=== PATIENT | male | born 1935 | race Caucasian/White ===

== ENCOUNTER → 2016-10-11 | Outpatient (CLI) | payer OTHER ==
[~2016-10-11] MED LIST: CALCCHW57 PO; CHOL1000 PO; CIPR-255 PO; DOCU-94 PO; LISI-461 PO; LISI-787 PO; OXYC7.5T65 PO; PHEN-775 PO; TAMS0.4C38 PO
== END | disposition home or self-care (01) ==
LOC: C.PATHSPEC 17:16
PROVIDERS: ATTEND Urology
DX: R97.20 Elevated prostate specific antigen [PSA] (principal); C61 Malignant neoplasm of prostate

== ENCOUNTER → 2016-11-03 | Outpatient (CLI) | payer OTHER ==
[~2016-11-03] MED LIST changes: +OPTIRAY 320 IV PRN
--- NOTE | 2016-11-03 12:23 | DIAGNOSTIC IMAGING REPORT ---
WHOLE BODY BONE SCAN HISTORY: Prostate carcinoma PROSTATE CA RADIOTRACER: 26.9 mCi Tc-99m MDP STUDY/IMAGES: Planar anterior and posterior whole body imaging was performed 3 hours following the intravenous administration of radiotracer. COMPARISON: None. FINDINGS: Bilateral renal activity is present. There is some prominence of the left renal pelvis. Subtle increase in activity in the T12 vertebral body felt to be secondary to an old compression deformity base of the CT exam the same date. Low-level increase in activity of the left eighth rib seen posteriorly as well as anteriorly felt to represent posttraumatic change as well. The axial and appendicular skeleton is otherwise unremarkable in terms of activity characteristics. There is no evidence for metastatic bone disease. IMPRESSION: Study is negative for metastatic bone disease. Electronically signed by: Remigio Harper M.D. 11/03/2016 12:21 PM Dictated Date/Time: 11/03/2016 12:16 PM
--- NOTE | 2016-11-03 12:41 | DIAGNOSTIC IMAGING REPORT ---
ABD/PELVIS IV CONTRAST ONLY CLINICAL HISTORY: 81 years-old Male presenting with PROSTATE CA. TECHNIQUE: Multidetector CT of the abdomen and pelvis was performed after the administration of intravenous contrast. IV contrast: 117 mL of Optiray 320. COMPARISON: None. CT DOSE: The estimated cumulative dose is 832.78 mGycm. FINDINGS: Animal Cruelty Investigator topogram: Unremarkable. Lung bases: Minimal dependent changes in the lungs likely atelectasis. Normal heart size. No pericardial or pleural effusion. Liver: Normal morphology. No liver lesion. Patent hepatic vasculature. Biliary: No intrahepatic or extrahepatic biliary ductal dilatation. Normal gallbladder. Pancreas: 4 mm hypodense focus in the uncinate process (series 2 image 33), too small to characterize but possibly tiny cystic lesion. No pancreatic ductal dilatation. Spleen: Normal. Adrenal glands: Normal. Kidneys and ureters: Scattered well-defined hypodense lesions in the kidneys bilaterally, greater on the right, likely cysts. Mild to moderate left pelvocaliectasis with apparent mild urothelial enhancement and thickening. The left ureter also demonstrates mild enhancement and thickening. The left ureter is mildly dilated. Incidental note made of circumaortic left renal vein. Gastrointestinal tract: Sigmoid diverticulosis. No bowel obstruction. Peritoneal cavity: No free fluid or intraperitoneal gas. Bladder: Diffuse mild bladder wall thickening. Pelvic organs: Prostate enlargement. The prostate measures 4.7 cm in transverse dimension. Vasculature: Atherosclerosis of the abdominal aorta, which demonstrates mild ectasia in the infrarenal segment measuring up to 2.6 cm in maximal diameter. Atherosclerosis of the common iliac arteries. IVC patent. Lymph nodes: No enlarged lymph nodes in the abdomen or pelvis. Abdominal wall: Normal. Musculoskeletal: Anterior vertebral body height loss of T12 consistent with a compression deformity. Mild degenerative changes in the lumbar spine primarily at L4-5 and L5-S1. Prominent Schmorl's node noted at the inferior endplate of L1. Sclerotic bone lesion in the left ischium (series 2 image 79). Chronic deformity of the right transverse process of L1, possibly congenital. IMPRESSION: 1. Enlarged prostate. No lymphadenopathy. Sclerotic lesion in the left ischium, which is suspicious in the clinical setting of prostate cancer. Further evaluation with nuclear medicine bone scan to be considered. 2. Circumferential bladder wall thickening could be seen in the setting of chronic outlet obstruction or cystitis. 3. Urothelial thickening and enhancement in the left collecting system raises concern for infectious cystitis with upper tract involvement. Correlate with urinalysis. No evidence of pyelonephritis. Dilatation of the left renal collecting system. Evaluation for hydronephrosis limited by the single phase examination and obstruction cannot be excluded. 4. Intervertebral body height loss of T12 consistent with an age-indeterminate compression deformity. Electronically signed by: Peter Wiley 11/03/2016 12:40 PM Dictated Date/Time: 11/03/2016 12:27 PM
== END | disposition home or self-care (01) ==
LOC: C.NUCL 07:33
PROVIDERS: ATTEND Urology
DX: C61 Malignant neoplasm of prostate (principal)

== ENCOUNTER 2016-12-28 07:09 | Day surgery (SDC) | payer OTHER ==
[2016-12-13 09:13] VITALS: BMI 28.0
--- NOTE | 2016-12-13 09:48 | PAT Medication Instructions ---
Service Date Dec 13, 2016. Current Home Medication List Calcium Carbonate-Vitamin D W/ (Calcium 1200), 1 TAB PO QAM Cholecalciferol (Vitamin D3), 1 TAB PO QAM Lisinopril/Hctz (Zestoretic 20MG/12.5MG), 0.5 TAB PO QD@16 Tamsulosin Hcl (Flomax), 1 CAP PO QAM Medication Instructions For Your Scheduled Surgery - Hold the following medications the morning of surgery: Calcium Carbonate-Vitamin D W/ (Calcium 1200), 1 TAB PO QAM Cholecalciferol (Vitamin D3), 1 TAB PO QAM Tamsulosin Hcl (Flomax), 1 CAP PO QAM - Hold the following medications as scheduled the night before surgery: Lisinopril/Hctz (Zestoretic 20MG/12.5MG), 0.5 TAB PO QD@16 If you have any questions please call us at [phone] or [phone] or [phone]
[2016-12-13 10:41] LABS: URINE APPEARANCE CLEAR (CLEAR); URINE BILIRUBIN NEG (NEG); URINE COLOR YELLOW; URINE NITRITE NEG (NEG); URINE PH 6.5 (4.5-7.5); URINE SPECIFIC GRAVITY 1.011 (1.000-1.030); UROBILINOGEN NEG (NEG)
[2016-12-13 10:41] LABS: BASO % 0.3 %; BASO ABS # 0.02 K/uL (0-0.2); COMPLETE YES; EOS % 2.5 %; HEMATOCRIT 44.7 % (42-52); IG% 0.1 %; LYMPH % 27.1 %; LYMPH ABS # 1.83 K/uL (1.2-3.4); MEAN CELL VOLUME 93.3 fL (80-100); MEAN CORPUSCULAR HEMOGLOBIN 32.2 pg (25-34); MEAN CORPUSCULAR HGB CONC 34.5 g/dl (32-36); MEAN PLATELET VOLUME 9.7 fL (7.4-10.4); MONO % 6.5 %; NEUT % 63.5 %; PLATELET COUNT 223 K/uL (130-400); RED BLOOD COUNT 4.79 M/uL (4.7-6.1); WHITE BLOOD COUNT 6.75 K/uL (4.8-10.8)
[2016-12-13 10:44] LABS: MANUAL MICROSCOPIC REQUIRED? NO; REVIEW REQ? NO
--- NOTE | 2016-12-13 10:48 | DIAGNOSTIC IMAGING REPORT ---
CHEST PREADMISSION(PA/LAT) CLINICAL HISTORY: 81 years-old Male presenting with preoperative assessment. TECHNIQUE: PA and lateral views of the chest were obtained. COMPARISON: Correlation made to CT of the abdomen and pelvis from 11/03/2016. FINDINGS: Cardiomediastinal silhouette normal. Minimal vague right basilar opacity may be present. No other focal infiltrate. No pleural effusion or pneumothorax. Degenerative changes of the spine. Upper abdomen normal. IMPRESSION: 1. Possible minimal right basilar atelectasis. Otherwise no evidence of acute cardiopulmonary disease. Electronically signed by: Peter Wiley M.D. 12/13/2016 10:46 AM Dictated Date/Time: 12/13/2016 10:45 AM
[2016-12-13 11:16] LABS: BUN/CREATININE RATIO 21.2 (10-20); CALCIUM 8.9 mg/dl (8.5-10.1); POTASSIUM 4.3 mmol/L (3.5-5.1)
[~2016-12-28] VITALS: Ht 172.7 cm; Wt 83.1 kg
[~2016-12-28 07:09] MED LIST changes: -CIPR-255 PO; +CIPROFLOXACIN / D5W 400 MG IV SCH; -DOCU-94 PO; +LACTATED RINGER'S 1000ML 1,000 ML IV SCH; -LISI-461 PO; -OPTIRAY 320 IV PRN; -OXYC7.5T65 PO; -PHEN-775 PO
[2016-12-28 07:48] VITALS: BP 166/86; PULSE 67; TEMP 36.4; O2SAT 94; Ht 172.7 cm; Wt 83.1 kg
[2016-12-28] MEDS ORDERED: FENTANYL CITRATE INJ 50 MCG/1 ML 2 ML VIAL ONE (08:01)
[2016-12-28] MEDS ORDERED: EpHEDrine SULFATE INJ 50 MG/ML AMP IV PRN (08:30)
[2016-12-28] MEDS ORDERED: ATROPINE SULFATE 0.1 MG/ML 5ML SYR IV PRN (08:30)
[2016-12-28] MEDS ORDERED: HYDROmorphone INJ 2 MG/ML SYR/VIAL IV PRN (08:30)
[2016-12-28] MEDS ORDERED: ONDANSETRON INJ 2 MG/ML 2 ML VIAL IV PRN (08:30)
[2016-12-28] MEDS ORDERED: PHENYLEPHRINE 100MCG/ML 5ML SYR IV PRN (08:30)
--- NOTE | 2016-12-28 09:14 | History & Physical Bridge Note ---
H&P Re-Evaluation Bridge Note: I have examined the patient, reviewed the History & Physical and in the interval since the performance of the History & Physical I have noted the following changes of clinical significance: No changes noted
[2016-12-28] MEDS ORDERED: PROPOFOL IV EMULSION 10 MG/ML 20 ML VIAL IV ONE (10:23)
[2016-12-28] MEDS ORDERED: DEXAMETHASONE SOD INJ 4 MG/ML VIAL ONE (10:23)
[2016-12-28] MEDS ORDERED: ONDANSETRON INJ 2 MG/ML 2 ML VIAL ONE (10:23)
[2016-12-28] MEDS ORDERED: LIDOCAINE HCL 2% 2 ML VIAL (20MG/ML) ONE (10:23)
[2016-12-28] MEDS ORDERED: BUPIVACAINE 0.5 % 5 MG/1 ML MPF 30ML VIAL ONE (10:32)
[2016-12-28] MEDS ORDERED: BELLADONNA/OPIUM SUPP 60 MG SUPP PR ONE (10:42)
[2016-12-28] MEDS ORDERED: BACITRACIN OINT 15 GM TUBE ONE (11:03)
[2016-12-28] MEDS ORDERED: CIPR-255 PO (11:16)
[2016-12-28] MEDS ORDERED: PHEN-775 PO (11:16)
[2016-12-28] MEDS ORDERED: OXYC7.5T65 PO (11:16)
[2016-12-28] MEDS ORDERED: DOCU-94 PO (11:16)
--- NOTE | 2016-12-28 11:19 | Discharge Instructions ---
Discharge Instructions Date of Service Dec 28, 2016. Admission Reason for Admission: Benign Prostatic Hyperplasia, Prostate Cancer for XRT Discharge Discharge Diagnosis / Problem: BPH / CAP, LUTS s/p GLTURP and fiducial marker placement Discharge Goals Goal(s): Decrease discomfort, Improve function, Improve disease control, Therapeutic intervention Activity Recommendations Activity Limitations: as noted below Lifting Limitations: no more than 25 pounds, gradually increase as tolerated ( x 5 days) Exercise/Sports Limitations: rest today, gradually increase as tolerated (x 5 days) May Resume Sexual Activity: after follow-up appointment Shower/Bathe: no limitations (no tub bath until catheter removed) . Discharge Diet Recommended Diet: Regular Diet (good fluid intake) Procedures Procedures Performed: Greenlight Photo vaporization Laser of Prostate gland, Implantation of Fudicial Markers Pending Studies Studies pending at discharge: no Medical Emergencies . Who to Call and When: Medical Emergencies: If at any time you feel your situation is an emergency, please call 911 immediately. . Non-Emergent Contact Non-Emergency issues call your: Urologist Call Non-Emergent contact if: you have a fever, temperature is above 101, your pain is not controlled, your pain is worsening, your pain is unusual for you, your pain is concerning you, wound has increased drainage, wound has increased redness, you have any medication questions . . "Provider Documentation" section prepared by Stephen Brock. . VTE Core Measure Inpt VTE Proph given/why not?: SCD's [place] Drug Monitoring Program Search Results: patient reviewed within database, no issues identified
--- NOTE | 2016-12-28 11:21 | [facility] Post Operative Brief Note ---
Immediate Operative Summary Operative Date Dec 28, 2016. Pre-Operative Diagnosis Prostate Cancer, voiding symptoms, pending external beam radiation therapy Post-Operative Diagnosis Same Procedure(s) Performed Greenlight Laser Photo vaporization of Prostate gland, Implantation of Fudicial Markers Surgeon Dr. Stephen Brock Business Continuity Planner Surgeon(s) NA Estimated Blood Loss 10 mL Findings 121K J used, open fossa, 3 fiducial markers placed, two on left, one on right Specimens none Drains 20 fr 10 cc H2O Anesthesia GALMA Complication(s) None Disposition Recovery Room / PACU
--- NOTE | 2016-12-28 11:26 | [facility] Operative Report ---
Operative Report Operative Date Dec 28, 2016. Pre-Operative Diagnosis Prostate Cancer, voiding symptoms, pending external beam radiation therapy Post-Operative Diagnosis Same Procedure(s) Performed Greenlight Laser Photo vaporization of Prostate gland, Implantation of Fudicial Markers Surgeon Dr. Stephen Brock Teaching Pastor Surgeon(s) TONY Estimated Blood Loss 10 mL Findings 121K J used, open fossa with excellent hemostasis after completion, 3 fiducial markers placed, two on left, one on right Specimens none Drains 20 fr 10 cc H2O Anesthesia GALMA Complication(s) None Disposition Recovery Room / PACU Indications Patient is an 81-year-old male with [place] 4+4 prostate cancer, on prostate biopsy in relatively high volumes. He is pending external beam radiation therapy but continues to suffer from refractory voiding symptoms despite medical therapy. He is decided upon surgical management of his urinary symptoms prior to initiating his radiation therapy. He has been provided with Lupron approximately 1 month ago. Consent reviewed with the patient preoperatively and intravenous antibiotic was provided for coverage. SCDs used for DVT prophylaxis. Please see H&P for further details. Description of Procedure Patient was properly identified and brought to the operative suite after identification of appropriate consent of the chart. General anesthesia with laryngeal mask was initiated and the patient was prepped and draped in standard fashion for this procedure. Full timeout procedure was followed. Greenlight laser resectoscope was introduced into the bladder under direct visualization using a visual obturator. Bladder was surveyed in its entirety demonstrating grade 3 trabeculation with early cellules and small hutches diverticula on both sides. No intravesical papillary masses, tumors or calculi were appreciated. Ureteral orifices were noted and appreciated to be adequately removed from the bladder neck. Using a side fire greenlight laser fiber circumferential vaporization of the prostate was undertaken. This was performed between 80 and 120 W of energy. Relaxing incisions were made at the 5 and 7 o'clock position at the bladder neck to avoid future bladder neck contracture. Care was taken to avoid any dissection distal to the verumontanum. After approximately 121, 000 J of energy were used the prostate was noted to be well opened with excellent hemostasis and unobstructed fossa. No evidence of injury to the intravesical structures was appreciated. Bladder was partially distended and a 20 [place] Saldana catheter was placed over a catheter guide with return of clear irrigant. 10 mL of sterile water were placed within the balloon. Catheter was placed to gravity drainage. Transrectal ultrasound probe was then passed to allow for visualization of the prostate gland. A TUR defect was appreciated with a Saldana catheter in place. Copious central calcifications around the transition zone were noted. Using live ultrasound guidance fiducial markers were implanted within the prostate gland after creating a wheel of local anesthetic in the perineum. 2 gold markers were placed on the patient's left-hand side, 1 peripheral and one medial. One pocket marker was placed on the patient's right-hand side. These were visualized within the prostatic parenchyma on deployment. [place] were removed as was the transrectal ultrasound probe. Bacitracin ointment was placed on the perineum. Belladonna and opium suppository was provided for additional postoperative analgesia. Anesthesia was reversed patient's transient recovery room in stable condition. Follow-up care: Patient will be discharged home with a prescription for Pyridium , Percocet, ciprofloxacin and Colace. Outpatient trial void appointments in place. Follow-up in the office as planned. Patient instructed to contact our service should he note any fevers, chills, nausea, vomiting or other significant difficulties in the postoperative period I attest to the content of the Intraoperative Record and any orders documented therein. Any exceptions are noted below.
[2016-12-28] MEDS ORDERED: PHENAZOPYRIDINE HCL 200 MG TAB PO PRN (11:30)
[2016-12-28] MEDS ORDERED: OXYCODONE/ACETAMINOPHEN 5-325 TAB PO PRN (11:30)
--- NOTE | 2016-12-28 11:49 | Anesthesiology Progress Note ---
Anesthesia Post Op Note Date & Time Dec 28, 2016 at 11:49 Vital Signs Pain Intensity: 0 Vital Signs Past 12 Hours Date Time Temp Pulse Resp B/P (MAP) Pulse Ox O2 Delivery O2 Flow Rate FiO2 12/28/16 11:45 66 16 167/96 98 Room Air 12/28/16 11:35 67 16 156/94 100 Oxymask 10 12/28/16 11:25 62 16 162/95 100 Oxymask 12/28/16 11:15 36.9 64 16 168/97 100 Oxymask 10 12/28/16 07:48 36.4 67 20 166/86 (112) 94 Room Air Notes Mental Status: alert / awake / arousable, participated in evaluation Pt Amnestic to Procedure: Yes Nausea / Vomiting: adequately controlled Pain: adequately controlled Airway Patency, RR, SpO2: stable & adequate BP & HR: stable & adequate Hydration State: stable & adequate Anesthetic Complications: no major complications apparent
[2016-12-28 12:04] VITALS: BP_SYST 181; BP_SYST 192; BP_DIAS 102; BP_DIAS 98; PULSE 62; TEMP 36.9; O2SAT 97
[2016-12-28] MEDS ORDERED: HydrALAZINE HCL 20 MG/ML VIAL ONE (12:13)
[2016-12-28] MEDS ORDERED: NURSING VERBAL MED ORDER ONE (12:15)
[2016-12-28 12:35] VITALS: BP 157/77; PULSE 64; O2SAT 97
[2016-12-28 13:10] VITALS: BP 153/74; PULSE 74; TEMP 36.9; O2SAT 97
== END 2016-12-28 13:40 | disposition home or self-care (01) ==
LOC: C.ACU 07:09
PROVIDERS: ATTEND Urology
DX: C61 Malignant neoplasm of prostate (principal); N40.1 Benign prostatic hyperplasia with lower urinary tract symptoms; R39.12 Poor urinary stream; I10 Essential (primary) hypertension; Z79.899 Other long term (current) drug therapy

== ENCOUNTER 2018-09-05 09:00 | Observation (INO) ==
--- NOTE | 2018-08-26 14:23 | PAT Medication Instructions ---
Medication Instructions Date of Service August 26, 2018 Home Medications calcium carbonate-vitamin D3 1 tab PO QAM lisinopril-hydrochlorothiazide 0.5 tab PO QAM multivitamin 0.5 tab PO QAM DO NOT take the morning of surgery calcium carbonate-vitamin D3 1 tab PO QAM lisinopril-hydrochlorothiazide 0.5 tab PO QAM multivitamin 0.5 tab PO QAM Other Notes If you have any questions please call us at [phone] or [phone] or [phone] or [phone]
--- NOTE | 2018-08-27 09:08 | Anesthesiology Consultation ---
Date of Service August 27, 2018 Assessment & Plan (1) Encounter for pre-operative examination: Chart Review Chart Review: Acceptable Risk for Surgery and Patient seen in Pre Admission Testing Teaching & Discussion Pre-Anesthesia Teaching/Discussion Notes: Instructed NPO after midnight before surgery,except medications with 15 cc of water. Medication instructions provided according to the PAT guidelines. History Surgery Operation Date: 09/05/18 07:00 Proposed Procedures p Left Thyroid Lobectomy, Possible Subtotal Thyroidectomy - Anthony Hernandez MD Height/Weight Height: 5 ft 9 in Weight: 95.1 kg Allergies Allergy/AdvReac Type Severity Reaction Status Date / Time No Known Allergies Allergy Unverified 08/26/18 07:33 Medications Home Medications Medication Instructions Recorded Confirmed Last Taken calcium carbonate-vitamin D3 1 tab PO QAM 08/26/18 08/26/18 Unknown [Calcium 500 + D] lisinopril-hydrochlorothiazide 0.5 tab PO QAM 08/26/18 08/26/18 Unknown multivitamin 0.5 tab PO QAM 08/26/18 08/26/18 Unknown Past Medical History Medical History Cancer SCC AND MELANOMA H/O prostate cancer S/P RADIATION TREATMENT (~2016) Hearing deficit BILATERAL AIDS History of blood transfusion REMOTE 2/2 PUD/GIB Hypertension Osteoarthritis Thyroid goiter Exercise / Class Metabolic Activity III < 4 Walking/Shop/Light housework Past Surgical History Surgical History History of esophagogastroduodenoscopy (EGD) History of excision of lesion LEFT EAR (2/2 SCC) History of herniorrhaphy LEFT INGUINAL History of open reduction and internal fixation (ORIF) procedure LEFT CLAVICLE History of transurethral resection of prostate GREENLIGHT TURP: 07/08/16: LMA#5 AT [facility] S/P thyroid surgery RIGHT LOBECTOMY (HAS SINCE GROWN BACK) R/T GOITER Past Anesthesia History No Hx of Anesthesia Complications History of PONV No Hx of PONV and No Family Hx of PONV Social History Smoking Status: Never smoker Do You Dip or Chew Tobacco: No Hx Alcohol Use: Yes Alcohol type: wine alcohol intake frequency: a few times a week Hx Substance Use: No substance use type: does not use Review of Systems Patient denies chest pain, shortness of breath, cough, wheezing, palpitations. Physical Exam Vital Signs VITALS BP 163/82 P 69 TEMP 97.4 SP02 97%RA RESP 18 PHYSICAL Mildly decreased cervical extension. Full TMJ range of motion. TMD 3.5 finger breaths Mallampati Score 3 Dentition: several missing sides/molars Lungs: clear throughout to auscultation Cardiac: regular rate and rhythm, no murmurs noted Spine: normal Carotid arteries: negative bruit Extremities: no edema Testing Electrocardiogram Date: 08/27/18 Findings: + NSR @ (67) Chest X-Ray Date: 08/27/18 Findings: + NAD Calcification of the thoracic aortic arch. Mild interstitial coarsening of the lung bases unchanged suggestive of probable scarring intermixed with atelectasis. The lungs are mildly hyperinflated. Unchanged lower thoracic compression deformity. Laboratory Results 08/27/18 09:31 08/27/18 09:31
--- NOTE | 2018-08-27 10:08 | XRay Report ---
XR chest Pre-admission PA/Lat HISTORY: 82 years-old Male pat preoperative exam. No acute chest complaints COMPARISON: Chest radiographs 12/13/2016 TECHNIQUE: PA and lateral views of the chest FINDINGS: Cardiomediastinal and hilar silhouettes are within normal limits. Calcification of the thoracic aorti c arch. Mild interstitial coarsening of the lung bases unchanged suggestive of probable scarring inte rmixed with atelectasis. There is no pneumothorax, pleural effusion or overt pulmonary edema. The trisha gs are mildly hyperinflated. Degenerative changes are seen about the shoulders and spine. Unchanged l ower thoracic compression deformity. IMPRESSION: No acute process. The above report was generated using voice recognition software. It may contain grammatical, syntax o r spelling errors. Electronically signed by: Rizwan Hood M.D. 08/27/2018 10:06 AM
[2018-08-27 10:25] LABS: BUN Creatinine Ratio 17.5 (10-20); Calcium 9.1 mg/dl (8.5-10.1); Creatinine Clr Calc Pharmacy 61.4 ml/min; Est GFR (African American) 77.9; Est GFR (Non-African American) 67.2; Potassium 4.2 mmol/L (3.5-5.1)
[2018-08-27 10:28] LABS: Basophils # (auto) 0.02 K/uL (0-0.2); Basophils % (auto) 0.3 %; Eosinophils # (auto) 0.21 K/uL (0-0.5); Eosinophils % (auto) 3.3 %; Hematocrit (blood only) 41.8 % (42-52); Hemoglobin 14.5 g/dL (14.0-18.0); Immature Granulocytes # (auto) 0.02 K/uL (0.00-0.02); Immature Granulocytes % (auto) 0.3 %; Lymphocytes % (auto) 22.3 %; Mean Corpuscular Hgb Conc 34.7 g/dL (32-36); Mean Corpuscular Volume 90.5 fL (80-100); Mean Platelet Volume 9.7 fL (7.4-10.4); Monocytes # (auto) 0.49 K/uL (0.11-0.59); Monocytes % (auto) 7.8 %; Neutrophils # (auto) 4.15 K/uL (1.4-6.5); Platelet Count 242 K/uL (130-400); RDW Coefficient of Variation 13.4 % (11.5-14.5); RDW Standard Deviation 43.9 fL (36.4-46.3); Red Blood Count 4.62 M/uL (4.7-6.1); White Blood Count 6.29 K/uL (4.8-10.8)
[~2018-09-05 09:00] MED LIST changes: -CALCCHW57 PO; -CHOL1000 PO; -CIPROFLOXACIN / D5W 400 MG IV SCH; -LACTATED RINGER'S 1000ML 1,000 ML IV SCH; -LISI-787 PO; +LR 15ML/HR IV SCH; -TAMS0.4C38 PO
[2018-09-05] MEDS ORDERED: ONDANSETRON INJ 2 MG/ML 2 ML VIAL IV PRN ×2 (09:44→13:21)
[2018-09-05] MEDS ORDERED: PHENYLEPHRINE 100MCG/ML 5ML SYR IV PRN (09:44)
[2018-09-05] MEDS ORDERED: HYDROmorphone INJ 1 MG/ML SYRINGE IV PRN (09:44)
[2018-09-05] MEDS ORDERED: ePHEDrine sulfate 50 MG/ML AMP IV PRN (09:44)
[2018-09-05] MEDS ORDERED: fentaNYL citrate 100 MCG/2 ML VIAL IV PRN (09:44)
[2018-09-05] MEDS ORDERED: ATROPINE SULFATE 0.1 MG/ML 10ML SYR IV PRN (09:44)
[2018-09-05] MEDS ORDERED: fentaNYL citrate 100 MCG/2 ML VIAL ONE (10:31)
[2018-09-05] MEDS ORDERED: MIDAZOLAM HCL 1 MG/ML 2ML VIAL ONE (10:31)
--- NOTE | 2018-09-05 11:04 | History & Physical Bridge Note ---
Date of Service September 05, 2018 History & Physical Bridge Note I have examined the patient, reviewed the History & Physical and in the interval since the performance of the History & Physical I have noted the following changes of clinical significance: no changes noted family at bedside all questions answered pt market will get nasal swab to check for MRSA
[2018-09-05] MEDS ORDERED: SUCCINYLCHOLINE CHLORIDE 20 MG/ML 10 ML VIAL ONE ×2 (11:15→11:59)
[2018-09-05] MEDS ORDERED: LIDOCAINE/EPINEPHRINE 1% 20 ML VIAL ONE (11:17)
[2018-09-05] MEDS ORDERED: ePHEDrine sulfate 50 MG/ML AMP ONE (11:59)
[2018-09-05] MEDS ORDERED: ROCURONIUM BROMIDE 10 MG/ML 5 ML VIAL ONE ×2 (11:59→12:39)
[2018-09-05] MEDS ORDERED: NEOSTIGMINE METHYLSULFATE 5 MG/5 ML SYR ONE (11:59)
[2018-09-05] MEDS ORDERED: DEXAMETHASONE SOD INJ 4 MG/ML VIAL ONE (11:59)
[2018-09-05] MEDS ORDERED: LIDOCAINE HCL 2% 2 ML VIAL/AMP(20MG/ML) INFIL ONE (11:59)
[2018-09-05] MEDS ORDERED: GLYCOPYRROLATE 0.2 MG/ML VIAL ONE (11:59)
[2018-09-05] MEDS ORDERED: ONDANSETRON INJ 2 MG/ML 2 ML VIAL ONE ×2 (11:59→13:00)
[2018-09-05] MEDS ORDERED: PROPOFOL IV EMULSION 10 MG/ML 20 ML VIAL IV ONE (11:59)
[2018-09-05] MEDS ORDERED: LABETALOL HCL IV 5 MG/ML 20ML IV ONE (12:25)
[2018-09-05] MEDS ORDERED: HydrALAZINE HCL 20 MG/ML VIAL ONE (12:27)
[2018-09-05] MEDS ORDERED: ACETAMINOPHEN 1000 MG/100 ML IV IV ONE (12:56)
--- NOTE | 2018-09-05 13:03 | Post Operative Brief Note ---
Immediate Post Op Note v1 Date of Surgery September 05, 2018 Pre & Post Diagnosis Operation Date: 09/05/18 10:50 Pre-Op Diagnosis: Left Thyroid Nodule Post-Op Diagnosis: Left Thyroid Nodule Procedure Operation Date: 09/05/18 10:50 Actual Procedures p Left Thyroid Lobectomy - Anthony Hernandez MD Surgeon Anthony Hernandez MD Master Technician Apolinar villatoro Estimated Blood Loss 200 Findings Consistent with Post-Op Diagnosis Drains Surya Drain (05/03")
[2018-09-05] MEDS ORDERED: OXYCODONE/ACETAMINOPHEN 5mg/325mg TAB PO PRN ×2 (13:21)
[2018-09-05] MEDS ORDERED: MoRPHine SULFATE 10 MG/ML CARP/VIAL IV PRN (13:21)
[2018-09-05] MEDS ORDERED: MoRPHine SULFATE 2 MG/ML CARP IV PRN (13:21)
[2018-09-05] MEDS ORDERED: MoRPHine SULFATE 4 MG/ML 1 ML CARP\\VIAL IV PRN (13:21)
--- NOTE | 2018-09-05 13:27 | Operative Report ---
Post Operative Report Pre & Post Diagnosis Operation Date: 09/05/18 10:50 Pre-Op Diagnosis: Left Thyroid Nodule Post-Op Diagnosis: Left Thyroid Nodule Procedure Operation Date: 09/05/18 10:50 Actual Procedures p Left Thyroid Lobectomy - Anthony Hernandez MD Patient was brought into the operating theater supine position roll position underneath the shoulders and to the bed elevated at 30 degree angle neck and upper chest was prepped Betadine solution properly draped after general endotracheal anesthesia was administered a timeout was had patient was identified made an incision through the old scar extending it towards the left neck area approximately 1 inch we raised subplatysmal flaps superiorly inferiorly mostly by electrocautery the patient had a previous right thyroid lobectomy possible isthmusectomy there was market amount of scarring in the area after performing this we stayed in the midline using electrocautery stitch try to stay above the trachea is using that as a marker and then we were able to get into subsequent strap muscles on the left side ultimately a large left lobe of thyroid which is cystic degeneration the size of which was about 8 cm was bilobular and extended inferiorly almost in the thoracic inlet we used blunt dissection mostly to deliver out of the wounds then dissected out to identify and very hard to freed easily to the inferior thyroid vessels we had some oozing around the market inflammatory tissue in the area but we were able to ligate the inferior thyroid vessel. We also with identified the left thyroid inferior parathyroid dissection was carried out superiorly stayed onto the thyroid itself we freed up the left upper lobe attachments dissection was taken out towards the isthmus and identified that the isthmus was still present we do not go to the right lobe area we took the isthmus just right of the midline of the trachea leaving some thyroid tissue was probably a centimeter or so in size since the patient was quite concerned about taken thyroid medicine after surgery we identified the left recurrent nerve it was a small nerve as it went into the tracheal area the specimen was removed the area was checked hemostasis and appears satisfactory closed with with first 1/4 inch [place] that was brought through a stab wound and inferior to the incision placed in the left neck area in the thyroid bed 2-0 Vicryl interrupted to approximate the subcutaneous tissue and boris for skin edges dressing applied procedure tolerated well estimated blood loss 200 addendum yassine CHATTERJEE present throughout the procedure and help with retraction exposure and wound closure thank you Surgeon Anthony Hernandez MD Supervisor Data Processing Yassine chatterjee Estimated Blood Loss 200 Findings Consistent with Post-Op Diagnosis Specimens left thyroid and isthmus Description of Procedure [email or web address] I attest to the content of the Intraoperative Record and any orders documented therein. Any exceptions are noted below.
[2018-09-05] MEDS ORDERED: ACETAMINOPHEN 325 MG TAB PO PRN (14:20)
--- NOTE | 2018-09-05 14:51 | Anesthesiology Progress Note ---
Date of Service September 05, 2018 Anesthesia Post Procedure Vital Signs Vital Signs: Temp Pulse Pulse Resp BP Pulse Ox 09/05/18 14:15 36.5 C 62 16 150/84 H 94 09/05/18 13:54 36.4 C L 65 14 129/76 94 09/05/18 13:45 56 L 15 112/72 94 09/05/18 13:35 56 L 15 106/64 96 09/05/18 13:25 52 L 16 105/62 98 09/05/18 13:18 36 C L 59 L 15 128/77 95 09/05/18 09:35 36.5 C 69 20 175/94 H 97 Pain Intensity Anterior Neck: Pain Intensity: 0 Transfer of Care Handoff Completed per policy Notes Mental Status: alert / awake / arousable Patient Amnestic to Procedure: Yes Nausea / Vomiting: adequately controlled Pain: adequately controlled Airway Patency, RR, SpO2: stable & adequate BP & HR: stable & adequate Hydration State: stable & adequate Anesthetic Complications: no major complications apparent Notes: Awake, doing well, no complaints. VSS
[2018-09-05] MEDS: LACTATED RINGER'S 1,000 ML IV SCH ×2 (15:09→18:45)
[2018-09-05] MEDS ORDERED: LEVOTHYROXINE SODIUM 125 MCG TABLET PO SCH (19:00)
[2018-09-05] MEDS: LEVOTHYROXINE SODIUM 125 MCG TABLET PO SCH (20:12)
[2018-09-05] MEDS: CALCIUM 600MG + VIT D 400 IU TAB PO SCH (20:12)
[2018-09-06] MEDS: LACTATED RINGER'S 1,000 ML IV SCH (02:28)
[2018-09-06] MEDS: LEVOTHYROXINE SODIUM 125 MCG TABLET PO SCH (05:49)
--- NOTE | 2018-09-06 07:35 | Surgery Progress Note ---
Date of Service September 06, 2018 Assessment & Plan (1) Thyroid disease: drain removed this am CA level pending intraop findings discussed with pt wants to go home will keep on calcium supp and synthroid will check to see if pt needs second nasal swab to check for MRSA that he had 15 years ago Present on Admission?: Yes Subjective no problems tolerated diet voiding fine minimal discomfort Physical Exam Physical Exam: voice fine no neck hematoma incision intact moderated serous drainage incision Results & Data Vital Signs (Past 12 Hours) Vital Signs Temp Pulse Resp BP Pulse Ox 09/06/18 02:24 36.7 C 80 15 128/75 94 09/05/18 23:06 36.6 C 71 16 146/76 H 94
[2018-09-06 07:49] LABS: Basophils # (auto) 0.01 K/uL (0-0.2); Basophils % (auto) 0.1 %; Eosinophils # (auto) 0.04 K/uL (0-0.5); Eosinophils % (auto) 0.4 %; Hematocrit (blood only) 39.4 % (42-52); Hemoglobin 13.8 g/dL (14.0-18.0); Immature Granulocytes # (auto) 0.01 K/uL (0.00-0.02); Immature Granulocytes % (auto) 0.1 %; Lymphocytes # (auto) 0.99 K/uL (1.2-3.4); Lymphocytes % (auto) 10.7 %; Mean Corpuscular Volume 88.1 fL (80-100); Mean Platelet Volume 8.9 fL (7.4-10.4); Monocytes # (auto) 0.76 K/uL (0.11-0.59); Monocytes % (auto) 8.2 %; Neutrophils # (auto) 7.45 K/uL (1.4-6.5); Neutrophils % (auto) 80.5 %; Platelet Count 207 K/uL (130-400); RDW Coefficient of Variation 13.7 % (11.5-14.5); RDW Standard Deviation 44.5 fL (36.4-46.3); Red Blood Count 4.47 M/uL (4.7-6.1); White Blood Count 9.26 K/uL (4.8-10.8)
[2018-09-06 08:20] LABS: BUN Creatinine Ratio 15.8 (10-20); Calcium 8.5 mg/dl (8.5-10.1); Creatinine Clr Calc Pharmacy 62.3 ml/min; Est GFR (African American) 79.7; Est GFR (Non-African American) 68.8; Potassium 3.8 mmol/L (3.5-5.1)
[2018-09-06] MEDS ORDERED: LISINOPRIL/HCTZ 20/12.5MG 1 TAB TAB PO SCH (09:00)
[2018-09-06] MEDS: CALCIUM 600MG + VIT D 400 IU TAB PO SCH (09:21)
[2018-09-06 11:38] VITALS: BP 130/70; PULSE 84; TEMP 98.6; O2SAT 94
--- NOTE | 2018-09-13 09:01 | Discharge Summary ---
Date of Service September 13, 2018 Admission HPI Per Admitting Provider Mr Walker is an 83-year-old male who underwent Left Thyroid Lobectomy with Dr. Hernandez on 09/05/2018. Patient was admitted for observation following surgery for pain control and labwork. Patient's calcium supplement was restarted following surgery and Levothyroxine was iniated post-operatively. Labwork consisted of Calcium levels every 6 hrs following surgery. Operation Date: 09/05/18 10:50 Pre-Op Diagnosis: Left Thyroid Nodule Post-Op Diagnosis: Left Thyroid Nodule Procedure Operation Date: 09/05/18 10:50 Actual Procedures p Left Thyroid Lobectomy - Anthony Hernandez MD Principal Diagnosis Thyroid Nodule Discharge Data Allergies Allergy/AdvReac Type Severity Reaction Status Date / Time No Known Allergies Allergy Unverified 09/05/18 09:29 Procedures Performed Operation Date: 09/05/18 10:50 Actual Procedures p Left Thyroid Lobectomy - Anthony Hernandez MD Hospital Course (1) Thyroid disease: POD #1 drain removed this am CA level pending intraop findings discussed with pt wants to go home will keep on calcium supp and synthroid will check to see if pt needs second nasal swab to check for MRSA that he had 15 years ago Patient was discharged to home. Pain was well controlled. Patient was instructed to continue calcium supplement. He was also given a prescription for Levothyroxine. Follow-up appointment with Dr. Hernandez is scheduled. All questions answered. Return precautions reviewed. Total Time Total Time Spent Total Time Spent (In Minutes): 5 Discharge Plan Discharge Items Patient Disposition: Home - Self-Care Reason For Visit: Thyroid Nodule Discharge Diagnosis: Thyroid Nodule Discharge Goals: Decrease discomfort, Improve function and Therapeutic intervention Activity: As commented below Lifting: Wait until after follow-up appointment Bathing Comment: You may shower, but do not soak or scrub your incision. Exercise/Sports: Wait until after follow-up appointment Non-emergency contact: Surgeon Call non-emergency contact if: you have any medication questions, your pain is not controlled, your temperature is above 101.5, your wound has increased redness and your wound has increased drainage Follow-up/Referrals: Anthony Hernandez MD [Surgeon] - (Please follow-up with Dr. Hernandez in the General Surgery clinic in 1 week. Please call the clinic at [phone] to make this follow-up appointment. Please call the clinic at [phone] with any questions or concerns. ) PCP,NO [Primary Care Provider] - Diet: Regular Addtl Provider Instructions: Ok to resume home medications. You may shower, but do not soak or scrub your incision. Please follow-up with Dr. Hernandez in the General Surgery clinic in 1 week. Please call the clinic at [phone] to make this follow-up appointment. Prescriptions: New levothyroxine [Synthroid] 125 mcg tablet 125 mcg PO DAILY 14 Days Qty: 14 RF: 0 Continued lisinopril-hydrochlorothiazide 20-12.5 mg Tablet 0.5 tab PO QAM RF: 0 calcium carbonate-vitamin D3 [Calcium 500 + D] 500 mg(1,250mg) -400 unit Tablet 1 tab PO QAM RF: 0 multivitamin Tablet 0.5 tab PO QAM RF: 0 Stand-Alone Forms: [employer] [facility] [employer] [facility]/Other Patient Handouts: Surgery Prevent DVT After Discharge Orders: Discharge Order (Routine); Ordered 09/06/18 Ordered By: Katarina Dangelo Admission Data Admit Date/Time: 09/05/18 13:21 Attending Provider: Anthony Hernandez Admit Provider: Anthony Hernandez Primary Care Provider: SANDER,NO Service: Surgical Services Other Interventions: Discharge Summary Assessment (RN) Last Done: 09/06/18 12:50 Pending Studies at Discharge: Yes Studies:: Pathology report. DC Date/Time DO NOT enter until pt leaves facility: 09/06/18 13:51
== END 2018-09-06 13:51 | disposition home or self-care (01) ==
LOC: ASU 09:00 → 3N 09:00